=== PATIENT | female | born 1985 | race Caucasian/White ===

== ENCOUNTER → 2017-05-26 | Outpatient (CLI) | payer BC ==
[2017-05-26 08:02] LABS: BLOOD UREA NITROGEN 10 mg/dL (7-18); CALCIUM 8.7 mg/dL (8.5-10.1); CARBON DIOXIDE 27.2 mmol/L (21-32); CHLORIDE 105 mmol/L (98-107); CREATININE 0.73 mg/dL (0.55-1.02); GLUCOSE 51 mg/dL (65-99); SODIUM 141 mmol/L (136-145); eGFR BLACK RACES > 60 (>60); eGFR NON BLACK RACES > 60 (>60)
[2017-05-26 08:17] LABS: SERUM PREGNANCY TEST, QUAL NEGATIVE <10 mIU/mL
[2017-05-26 08:24] LABS: BILIRUBIN,URINE NEGATIVE (NEGATIVE); BLOOD/HEMOGLOBIN,URINE 2+ (NEGATIVE); GLUCOSE, URINE NEGATIVE (NEGATIVE); KETONES,URINE NEGATIVE (NEGATIVE); LEUKOCYTE ESTERASE ,URINE 1+ (NEGATIVE); NITRITES,URINE NEGATIVE (NEGATIVE); PROTEIN,URINE NEGATIVE (NEGATIVE); UROBILINOGEN,URINE NORMAL (NORMAL)
[2017-05-26 08:33] LABS: APPEARANCE,URINE CLEAR (CLEAR); COLOR,URINE YELLOW (YELLOW); SQUAMOUS EPITHELIAL CELL,UR RARE /HPF (NEGATIVE)
[2017-05-26 08:34] LABS: AMORPHOUS SEDIMENT,UR TRACE /HPF (NEGATIVE); BACTERIA,URINE TRACE /HPF (NEGATIVE)
[2017-05-26 08:49] LABS: BASOPHILS # (AUTO) 0.1 X10^3/uL (0.0-0.1); BASOPHILS % (AUTO) 0.7 % (0.2-1.0); EOSINOPHILS # (AUTO) 0.2 x10^3/uL (0.0-0.2); HEMOGLOBIN 13.2 g/dL (12.0-16.0); LYMPHOCYTES # (AUTO) 1.6 X10^3/uL (1.3-2.9); LYMPHOCYTES % (AUTO) 18.8 % (21.0-51.0); MEAN CORPUSCULAR HEMOGLOBIN 30.1 pg (27.0-34.0); MEAN CORPUSCULAR HGB CONC 33.9 g/dL (33.0-35.0); MEAN CORPUSCULAR VOLUME 88.6 fL (80.0-100.0); MEAN PLATELET VOLUME 9.3 fL (7.4-11.0); MONOCYTES # (AUTO) 0.6 x10^3/uL (0.3-0.8); MONOCYTES % (AUTO) 7.1 % (0.0-13.0); NEUTROPHILS # (AUTO) 6.3 x10^3/uL (2.2-4.8); NEUTROPHILS % (AUTO) 71.4 % (42.0-75.0); PLATELET COUNT 271 X10^3/uL (150.0-450.0); RED CELL DISTRIBUTION WIDTH 12.7 % (11.6-16.5); WHITE BLOOD COUNT 8.8 X10^3/uL (3.6-10.0)
== END | disposition home or self-care (01) ==
LOC: LAB 07:23
PROVIDERS: ATTEND Specialist
DX: Z01.818 Encounter for other preprocedural examination (principal); N94.6 Dysmenorrhea, unspecified; N92.5 Other specified irregular menstruation; R10.2 Pelvic and perineal pain; D06.7 Carcinoma in situ of other parts of cervix; D25.9 Leiomyoma of uterus, unspecified
CPT/HCPCS: 36415; 80048; 81001; 84703; 85025; 85610; 85730; 86850; 86900; 86901; 87086

== ENCOUNTER 2017-06-08 06:49 | Observation (INO) | payer BC ==
[~2017-06-08 06:49] MED LIST: VASOSTRICT INJ 20 UNITS VIAL ONE
[2017-06-08] MEDS ORDERED: D5 1/2 NS 1000 ML 1,000 ML IV ONE (06:52)
[2017-06-08] MEDS ORDERED: NS 50 ML IV + SPIKE MINIBAG* 50 ML IV ONE (06:53)
[2017-06-08] MEDS ORDERED: ANCEF VIAL 1 GM ONE (06:53)
[2017-06-08] MEDS ORDERED: LR 1000 ML IV 1,000 ML IV ONE (07:01)
[2017-06-08] MEDS ORDERED: FENTANYL INJ 100 mcg ONE (07:11)
[2017-06-08] MEDS ORDERED: DURAMORPH ONE (07:11)
[2017-06-08 07:24] VITALS: BMI 26.0
[2017-06-08] MEDS ORDERED: NS IRRIGATION 1000 ML 1,000 ML IR ONE (07:44)
[2017-06-08] MEDS ORDERED: PHENERGAN INJ 25 MG IVP PRN (08:40)
[2017-06-08] MEDS ORDERED: REGLAN INJ 10 MG VIAL IVP PRN (08:40)
[2017-06-08] MEDS ORDERED: ZOFRAN INJ 4 MG VIAL IVP PRN ×3 (08:40→09:41)
[2017-06-08] MEDS ORDERED: DILAUDID INJ IVP PRN (08:40)
[2017-06-08] MEDS ORDERED: BENADRYL INJ 50 MG VIAL IVP PRN ×2 (08:40→09:41)
[2017-06-08] MEDS ORDERED: DILAUDID INJ ONE (08:58)
[2017-06-08] MEDS ORDERED: PERCOCET TAB 5/325 MG PO PRN ×2 (09:41→16:56)
[2017-06-08] MEDS ORDERED: ANCEF VIAL 1 GM 1 GM in NS 50 ML IV + SPIKE MINIBAG* 50 ML IV PRN (09:41)
[2017-06-08] MEDS ORDERED: TORADOL 30 MG VIAL IVP PRN (09:41)
[2017-06-08] MEDS ORDERED: D5 1/2 NS 1000 ML 1,000 ML IV SCH (09:41)
[2017-06-08] MEDS ORDERED: NARCAN INJ IVP PRN (09:41)
[2017-06-08] MEDS: BENADRYL INJ 50 MG VIAL IVP PRN ×2 (10:07→15:50)
[2017-06-08] MEDS: D5 1/2 NS 1000 ML 1,000 ML IV SCH ×2 (15:34→23:23)
[2017-06-08] MEDS: TORADOL 30 MG VIAL IVP PRN ×2 (17:07→23:23)
[2017-06-09] MEDS: D5 1/2 NS 1000 ML 1,000 ML IV SCH ×2 (04:00→06:47)
[2017-06-09 05:28] LABS: BLOOD UREA NITROGEN 8 mg/dL (7-18); CALCIUM 7.5 mg/dL (8.5-10.1); CARBON DIOXIDE 30.7 mmol/L (21-32); CHLORIDE 106 mmol/L (98-107); CREATININE 0.61 mg/dL (0.55-1.02); GLUCOSE 86 mg/dL (65-99); SODIUM 141 mmol/L (136-145); eGFR BLACK RACES > 60 (>60); eGFR NON BLACK RACES > 60 (>60)
[2017-06-09 05:35] LABS: BASOPHILS % (AUTO) 0.6 % (0.2-1.0); EOSINOPHILS # (AUTO) 0.2 x10^3/uL (0.0-0.2); EOSINOPHILS % (AUTO) 2.7 % (0.9-2.9); HEMATOCRIT 30.5 % (36.0-47.0); HEMOGLOBIN 10.5 g/dL (12.0-16.0); LYMPHOCYTES # (AUTO) 1.8 X10^3/uL (1.3-2.9); LYMPHOCYTES % (AUTO) 27.3 % (21.0-51.0); MEAN CORPUSCULAR HEMOGLOBIN 30.5 pg (27.0-34.0); MEAN CORPUSCULAR HGB CONC 34.5 g/dL (33.0-35.0); MEAN CORPUSCULAR VOLUME 88.4 fL (80.0-100.0); MEAN PLATELET VOLUME 9.9 fL (7.4-11.0); MONOCYTES # (AUTO) 0.6 x10^3/uL (0.3-0.8); MONOCYTES % (AUTO) 9.2 % (0.0-13.0); NEUTROPHILS % (AUTO) 60.2 % (42.0-75.0); PLATELET COUNT 196 X10^3/uL (150.0-450.0); RED BLOOD COUNT 3.45 X10^6/uL (3.5-5.4); RED CELL DISTRIBUTION WIDTH 12.9 % (11.6-16.5); WHITE BLOOD COUNT 6.7 X10^3/uL (3.6-10.0)
[2017-06-09 08:12] VITALS: BP 93/51
== END 2017-06-09 10:00 | disposition home or self-care (01) ==
LOC: SURG1 06:49 → MED/SURG 09:28
PROVIDERS: ADMIT Specialist; ATTEND Specialist
PROC: 0UTC7ZZ Resection of Cervix, Via Natural or Artificial Opening (ICD-10-PCS; 2017-06-08)
PROC: 0UT97ZZ Resection of Uterus, Via Natural or Artificial Opening (ICD-10-PCS; principal; 2017-06-08 07:30)
DX: N92.5 Other specified irregular menstruation (principal); D25.2 Subserosal leiomyoma of uterus; R10.2 Pelvic and perineal pain; N94.6 Dysmenorrhea, unspecified; R87.613 High grade squamous intraepithelial lesion on cytologic smear of cervix (HGSIL)
CPT/HCPCS: 36415; 80048; 85025; 86850; 86900; 86901; A4222; G0378; J0690; J1170; J1200; J1885; J3010; J3490; J7042; J7120